=== PATIENT | male | born 1995 | race Caucasian/White ===

== ENCOUNTER 2017-08-09 19:12 | Emergency (ER) | payer BC, OTHER ==
--- NOTE | 2017-08-09 20:25 | EDM.PDOC ---
ED HPI GENERAL MEDICAL PROBLEM - General Chief Complaint: Gastrointestinal Problem Stated Complaint: abdominal pain Time Seen by Provider: 08/09/17 19:23 Source of Information: Reports: Patient, RN Notes Reviewed - History of Present Illness INITIAL COMMENTS - FREE TEXT/NARRATIVE: 22-year-old male comes in with abdominal pain and diarrhea, nausea, decreased appetite. He first started feeling ill about 4-5 days ago. Did have onset of frequent watery diarrhea at that time with nausea and decreased appetite. The diarrhea has continued, worse after eating and drinking. He did present to [facility] this afternoon, had some lab work done which is reported to been followed normal". X-rays of his abdomen apparently "showed a lot of stool" which did not seem to make a lot of sense with all of the diarrhea. Therefore he comes here for further evaluation. He has not been vomiting today. No fever or chills. Does have intermittent cramping worse after eating or drinking. belly button area Pain Score (Numeric/FACES): 7 - Related Data Allergies Allergy/AdvReac Type Severity Reaction Status Date / Time No Known Allergies Allergy Verified 08/09/17 19:24 Home Meds: Home Meds Omeprazole 20 mg PO DAILY 08/09/17 [History] Ondansetron [Zofran ODT] 4 mg PO Q6H PRN #10 tab.dis 08/09/17 [Rx] Past Medical History HEENT History: Reports: Impaired Vision Cardiovascular History: Reports: Aneurysm - Past Surgical History Cardiovascular Surgical History: Reports: Other (See Below) Other Cardiovascular Surgeries/Procedures: heart surgery (vein removal), graft placed as a child Musculoskeletal Surgical History: Reports: Other (See Below) Other Musculoskeletal Surgeries/Procedures:: staph infection to spinal cord Social & Family History - Family History Family Medical History: Noncontributory - Tobacco Use Packs/Tins Daily: 0.2 - Caffeine Use Caffeine Use: Reports: Soda - Recreational Drug Use Recreational Drug Use: No ED ROS GENERAL - Review of Systems Review Of Systems: See Below Constitutional: Denies: Fever, Chills HEENT: Denies: Rhinitis, Throat Pain Respiratory: Denies: Shortness of Breath Cardiovascular: Denies: Chest Pain GI/Abdominal: Reports: Abdominal Pain, Diarrhea, Decreased Appetite, Nausea. Denies: Vomiting Musculoskeletal: Reports: No Symptoms Skin: Reports: No Symptoms Neurological: Reports: No Symptoms ED EXAM, GI/ABD - Physical Exam Exam: See Below General Appearance: Alert, No Apparent Distress Throat/Mouth: Normal Inspection, Normal Oropharynx Neck: Supple, Full Range of Motion Respiratory/Chest: No Respiratory Distress, Lungs Clear, Normal Breath Sounds Cardiovascular: Regular Rate, Rhythm GI/Abdominal Exam: Soft, Non-Tender. No: Guarding, Rebound Rectal (Males) Exam: Other (Rectalno stool present, no unusual mass or tenderness) Neurological: Alert, Oriented, No Motor/Sensory Deficits Course - Vital Signs Last Recorded V/S: Last Vital Signs Temp 97 F 08/09/17 19:15 Pulse 67 08/09/17 19:15 Resp 18 08/09/17 19:15 BP 115/76 08/09/17 19:15 Pulse Ox 100 08/09/17 19:15 - Orders/Labs/Meds Orders: Active Orders 24 hr Category Date Time Status Abdomen 2V AP Flat Upright [CR] Stat Exams 08/09/17 19:40 Taken - Re-Assessments/Exams Free Text/Narrative Re-Assessment/Exam: 08/09/17 20:56 X-rays were done to better appreciate what was seen over at [facility]. There was some stool in the left colon but not excessive. Scattered gas on the right, no air-fluid levels Departure - Departure Time of Disposition: 20:21 Disposition: Home, Self-Care 01 Condition: Fair Clinical Impression: Abdominal pain, Diarrhea - Discharge Information Prescriptions: Ondansetron [Zofran ODT] 4 mg PO Q6H PRN #10 tab.dis PRN Reason: Nausea/Vomiting Instructions: Abdominal Pain, Adult, [id number], Diarrhea, Adult, Easy-to- Read Referrals: PCP,None [Primary Care Provider] - Forms: ED Department Discharge Additional Instructions: Clear liquids until tomorrow afternoon or evening, then very careful bland diet as tolerated, Zofran if needed for any further nausea or vomiting, begin probiotic this evening and take that twice daily for at least one week, symptoms should gradually start getting better day by day. Follow up clinic if not much better within 3-5 days as expected, return to ED as needed - My Orders Last 24 Hours: My Active Orders 08/09/17 19:40 Abdomen 2V AP Flat Upright [CR] Stat - Assessment/Plan Last 24 Hours: My Active Orders 08/09/17 19:40 Abdomen 2V AP Flat Upright [CR] Stat
--- NOTE | 2017-08-10 06:30 | CR ---
Abdomen: Supine and upright view of the abdomen was obtained. Comparison: No previous study. Oval densities are noted within the left upper abdomen and right abdomen compatible with ingested tablets. Single slightly prominent loop of small bowel is noted within the right upper abdomen. Bowel gas pattern is otherwise unremarkable. No free air is seen. No abnormal calcifications or soft tissue abnormality is seen. Calcifications are seen within the pelvis compatible with phleboliths. Impression: 1. Single nonspecific prominent loop of air-filled bowel within the upper right abdomen. Bowel gas pattern is otherwise unremarkable. This is most likely incidental. 2. Other incidental findings. Diagnostic code #2
== END 2017-08-09 20:30 | disposition home or self-care (01) ==
LOC: JD.ED 19:12
DX: R10.9 Unspecified abdominal pain (principal); R19.7 Diarrhea, unspecified; Z79.899 Other long term (current) drug therapy
CPT/HCPCS: 74020; 74020-26; 99283; 99284

== ENCOUNTER 2021-01-28 19:05 | Emergency (ER) | payer OTHER ==
--- NOTE | 2021-01-28 19:47 | EDM.PDOC ---
ED HPI GENERAL MEDICAL PROBLEM - General Chief Complaint: Laceration Stated Complaint: ARM LAC Time Seen by Provider: 01/28/21 19:24 Source of Information: Reports: Patient History Limitations: Reports: No Limitations - History of Present Illness INITIAL COMMENTS - FREE TEXT/NARRATIVE: Mr. Osullivan is a very pleasant 25-year-old gentleman who now presents the ED after accidentally puncturing his left forearm with a knife when he slipped while cutting bands off of steel posts at home around 17:00 this afternoon. He states that he washed the wound and applied Neosporin before going to the walk-in clinic. He states that the walk-in clinic sent him directly here. The patient is last tetanus vaccination was in September of this year. Here in the ED, the patient's initial BP is found to be modestly elevated at 154/94, otherwise, he is hemodynamically stable, afebrile, saturating 97% on room air. Prior to this evening, the patient denies having a recent fever, chills, sore throat, ear pain, nasal or sinus congestion, cough, dyspnea, chest pain, palpitations, nausea, vomiting, constipation, diarrhea, abdominal pain, urinary symptoms, recent weight gain or weight loss, recent bloody bowel movements or black bowel movements, recent joint aches, headaches, or rashes. The patient does not have a PCP. - Related Data Allergies Allergy/AdvReac Type Severity Reaction Status Date / Time No Known Allergies Allergy Verified 01/28/21 19:17 Home Meds: Home Meds Omeprazole 20 mg PO DAILY 08/09/17 [History] Ondansetron [Zofran ODT] 4 mg PO Q6H PRN #10 tab.dis 08/09/17 [Rx] Past Medical History HEENT History: Reports: Impaired Vision Cardiovascular History: Reports: Aneurysm (aortic, s/p aortic graft), High Cholesterol (untreated) Endocrine/Metabolic History: Reports: Obesity/BMI 30+ - Past Surgical History HEENT Surgical History: Reports: Oral Surgery (dental extractions) Cardiovascular Surgical History: Reports: Other (See Below) (Aortic graft) Dermatological Surgical History: Reports: Other (See Below) (Debridement lumbar spine) Social & Family History - Tobacco Use Tobacco Use Status *Q: Never Tobacco User Tobacco Use Within Last Twelve Months: Smokeless Tobacco (Chewd 2 cans/day from 10 yrs old to 17 yrs old) - Caffeine Use Caffeine Use: Reports: Soda - Alcohol Use Alcohol Use History: Yes Alcohol Use Frequency: Socially - Recreational Drug Use Recreational Drug Use: No - Living Situation & Occupation Living situation: Reports: , with Spouse, with Family (2 kids) Occupation: Employed ([employer]) ED ROS GENERAL - Review of Systems Review Of Systems: Comprehensive ROS is negative, except as noted in HPI. ED EXAM, SKIN/RASH Exam: See Below Exam Limited By: No Limitations General Appearance: Alert, WD/WN, No Apparent Distress Extremities: Other (There is a small, sub-centimeter puncture wound to the left forearm, over the mid radius. The wound was not bleeding, however, when I attempted to probe it with a cotton-tipped swab, it did start bleeding. The wound opening was too small to allow a cotton-tipped swab.) Course - Vital Signs Last Recorded V/S: Last Vital Signs Temp 36.6 C 01/28/21 19:13 Pulse 99 01/28/21 19:13 Resp 18 01/28/21 19:13 BP 154/94 H 01/28/21 19:13 Pulse Ox 97 01/28/21 19:13 - Re-Assessments/Exams Free Text/Narrative Re-Assessment/Exam: 01/28/21 19:42 As above, the patient suffered a puncture wound to his left mid-forearm when he slipped while using a knife to cut bands off of a steel post around 17:00 this a fternoon. On examination, there is a small puncture wound that was not spontaneously bleeding, although did start bleeding after I attempted to probe it. Since the puncture wound is small, I recommended that we keep the wound open to allow it to drain and diminish the likelihood of him developing an infection. He should keep it clean with ordinary soap and water, then cover with a clean bandage, daily. He may find that the bandage sticks better if he shaves the area around the wound. Given the nature of the wound, the development of an infection is low, therefore antibiotics are not indicated, however, if the patient develops signs or symptoms of an infection, he is to return to the ED for reevaluation. Departure - Departure Time of Disposition: 19:44 Disposition: Home, Self-Care 01 Condition: Good Clinical Impression: Puncture wound of left forearm - Discharge Information *PRESCRIPTION DRUG MONITORING PROGRAM REVIEWED*: Not Applicable *COPY OF PRESCRIPTION DRUG MONITORING REPORT IN PATIENT GUERO: Not Applicable Instructions: Puncture Wound, [id number] Referrals: PCP,Not In Area [Primary Care Provider] - Forms: ED Department Discharge Additional Instructions: You were seen in the emergency room after accidentally puncturing your left forearm with a knife when cutting bands off of a steel post this afternoon. Based on your history and physical examination, closure of the wound was not recommended. We recommend that you keep the wound clean with ordinary soap and water when you bathe. Pat dry, then cover with a clean bandage, daily. We do not recommend that you apply an antibiotic ointment. It is unlikely that the wound will become infected, however, if you do develop local swelling, redness, inordinate pain, or drainage from the wound, please return to the ER for reevaluation. Sepsis Event Note (ED) - Evaluation Sepsis Screening Result: No Definite Risk - Focused Exam Vital Signs: Vital Signs Temp Pulse Resp BP Pulse Ox 01/28/21 19:13 36.6 C 99 18 154/94 H 97
== END 2021-01-28 19:50 | disposition home or self-care (01) ==
LOC: JD.ED 19:05
DX: S51.832A Puncture wound without foreign body of left forearm, initial encounter (principal); E66.9 Obesity, unspecified; Z68.30 Body mass index [BMI] 30.0-30.9, adult; W26.0XXA Contact with knife, initial encounter
CPT/HCPCS: 99282; 99283